=== PATIENT | female | born 1975 | race Caucasian/White ===

== ENCOUNTER → 2016-07-09 | Outpatient (CLI) | payer BC ==
[~2016-07-09] MED LIST: GADOBUTROL 10mMol/10ml INJECTION IV ONE; NORMAL SALINE 50 ML IV ONE; SALINE FLUSH 10ml SYRINGE ONE
--- NOTE | 2016-07-09 15:41 | DI ---
Indication: ITS.REASON: H93.8X9 Other specified disorders of ear, unspecified ear PROCEDURE: MRA NECK W/WO CONTRAST: Comparison: None Technique: MRA imaging of the neck with and without contrast was acquired. Maximum intensity projection (MIP) reformatted images were produced. Contrast: 10 mL Gadavist Findings: The carotid bifurcations are widely patent bilaterally with normal flow-related enhancement within the common carotid, internal carotid, and external carotid arteries. The vertebral arteries are normal in size without evidence of significant stenosis. Impression: Unremarkable MRA of the neck with and without contrast. No stenosis by NASCET criteria. .
== END ==
LOC: IMA 12:27
PROVIDERS: ATTEND Nurse Practitioner
DX: H93.8X9 Other specified disorders of ear, unspecified ear (principal)
CPT/HCPCS: 70549; A9585; J7050